=== PATIENT | female | born 1955 | race Caucasian/White ===

== ENCOUNTER 2019-02-09 08:32 | Emergency (ER) | payer OTHER ==
[~2019-02-09] VITALS: Ht 175.3 cm; Wt 112.4 kg
[2019-02-09 08:34] VITALS: BP 134/78
--- NOTE | 2019-02-09 08:34 | NUR ---
PT. WAS CALLED TO TRIAGE AND IS IN THE RESTROOM. NO ANSWER.
[2019-02-09] MEDS ORDERED: SODIUM CHLORIDE FLUSH 10ML SYR IVF ONE (09:00)
[2019-02-09] MEDS ORDERED: KLONOPIN PO (09:03)
[2019-02-09] MEDS ORDERED: OMEP40CA6 PO (09:03)
[2019-02-09] MEDS ORDERED: ASCO500T6 PO (09:03)
[2019-02-09] MEDS ORDERED: OMEG1CAP6 PO (09:03)
[2019-02-09] MEDS ORDERED: ESTRACE 0.01% (09:03)
[2019-02-09] MEDS ORDERED: ARIP5TAB13 PO (09:03)
[2019-02-09] MEDS ORDERED: CETI10TA24 PO (09:03)
[2019-02-09] MEDS ORDERED: MULTIVITAMIN (09:03)
[2019-02-09] MEDS ORDERED: CYAN10005 PO (09:03)
[2019-02-09] MEDS ORDERED: DOXE50CA PO (09:03)
[2019-02-09] MEDS ORDERED: ASPI-496 PO (09:03)
[2019-02-09] MEDS ORDERED: SUCR1ORA5 PO (09:03)
[2019-02-09] MEDS ORDERED: POLY17PO5 PO (09:03)
[2019-02-09] MEDS ORDERED: ESCI20TA10 PO (09:03)
[2019-02-09] MEDS ORDERED: ONDA8TAB9 PO (09:03)
[2019-02-09] MEDS ORDERED: ATOR-2 PO (09:03)
[2019-02-09] MEDS ORDERED: LEVO150T5 PO (09:03)
[2019-02-09] MEDS ORDERED: MAGN400T36 PO (09:03)
[2019-02-09] MEDS ORDERED: LOSA50TA14 PO (09:03)
--- NOTE | 2019-02-09 09:04 | NUR ---
PT AMB TO ROOM 3 WITH SREADY GAIT. PT REPORTS SOB AND LOWER EXTREMITY EDEMA SINCE FLYING 1 WEEK AGO. PT STATES IT HAPPENS EVERY TIME SHE FLIES AND USUALLY GOES AWAY WITHIN 1-2 DAYS. THIS TIME, PT REPORTSS/S ARE NOT GETTING WORSE, BUT ARE NOT GETTING BETTER EITHER. CONNECTED TO MONITORS. VSS ON RA. LABS DRAWN AND SENT. PT TO XR AT THIS TIME. AWAITING RESUTLS.
[2019-02-09 09:21] LABS: ALANINE AMINOTRANSFERASE 36 U/L (12-78); ALBUMIN 3.7 g/dL (3.4-5.0); CALCIUM 9.6 mg/dL (8.5-10.1); CREATININE 0.96 mg/dL (0.55-1.02)
[2019-02-09 09:23] LABS: BASOPHILS # (AUTO) 0.05 x10^3/uL (0-0.1); BASOPHILS % (AUTO) 1 % (0-1); EOSINOPHILS # (AUTO) 0.26 x10^3/uL (0-0.4); EOSINOPHILS % (AUTO) 4 % (1-7); LYMPHOCYTES # (AUTO) 1.36 x10^3/uL (1-3.4); LYMPHOCYTES % (AUTO) 22 % (22-44); MD NO; MEAN CORPUSCULAR HEMOGLOBIN 30.7 pg (27.0-34.8); MEAN CORPUSCULAR HGB CONC 33.1 g/dL (32.4-35.8); MEAN CORPUSCULAR VOLUME 92.6 fL (80-100); MEAN PLATELET VOLUME 7.4 fL (7.4-10.4); MONOCYTES # (AUTO) 0.45 x10^3/uL (0.2-0.8); MONOCYTES % (AUTO) 7 % (2-9); NEUTROPHILS # (AUTO) 4.17 x10^3/uL (1.8-6.8); NEUTROPHILS % (AUTO) 66 % (42-75); PLATELET COUNT 318 x10^3/uL (130-400); RED BLOOD COUNT 4.53 x10^6/uL (3.82-5.3); RED CELL DISTRIBUTION WIDTH 14.4 % (9.6-15.2)
[2019-02-09 09:25] LABS: ALKALINE PHOSPHATASE 79 U/L (45-117); BILIRUBIN,TOTAL 0.5 mg/dL (0.2-1.0); TOTAL PROTEIN 6.6 g/dL (6.4-8.2); TROPONIN I < 0.015 ng/mL (0.000-0.045)
[2019-02-09 09:29] LABS: ANION GAP 4 mmol/L (5-15); CHLORIDE 111 mmol/L (98-107)
== END 2019-02-09 09:54 | disposition home or self-care (01) ==
LOC: ED 09:35
DX: R06.00 Dyspnea, unspecified (principal); I10 Essential (primary) hypertension; F32.9 Major depressive disorder, single episode, unspecified; E03.9 Hypothyroidism, unspecified
CPT/HCPCS: 36415; 71046; 80053; 83880; 84443; 84484; 85025; 85379; 93005; 99284